=== PATIENT | female | born 1955 | race African-American/Black ===

== ENCOUNTER 2017-05-10 23:15 | Inpatient (IN) ==
[2017-05-11 00:44] LABS: Basophils # 0.1 10*3/uL (0.0-0.2); Basophils % 0.7 % (0.0-0.8); Eosinophils # 0.1 10*3/uL (0.0-0.87); Hemoglobin 11.8 GM/DL (12.0-16.0); Immature Granulocytes % 0.3 %; Immature Granulocytes Absolute 0.03 #; Lymphocytes # 2.6 10*3/uL (1.4-4.0); Lymphocytes % 28.9 % (21.3-54.2); Mean Corpuscular HGB Conc 31.9 GM/DL (32-36); Mean Corpuscular Hemoglobin 28 PG (27-34); Mean Corpuscular Volume 88.5 FL (87-102); Mean Platelet Volume 12.5 FL (9.6-12.0); Monocytes # 0.4 10*3/uL (0.11-0.8); Monocytes % 4.3 % (1.7-12.7); NRBC # 0.03 10*3/uL; Neutrophils # 5.8 10*3/uL (1.4-7.4); Neutrophils % 64.8 % (38.7-73.9); Platelet Count 225 T/CUMM (130-400); Red Blood Count 4.18 MC/CUMM (3.8-5.5); White Blood Count 8.9 T/CUMM (4-12)
[2017-05-11 01:10] LABS: Calcium 8.6 MG/DL (8.5-10.1); Osmolality,Calculated 276.8 MOS/KG (273-304); Troponin I Only 0.015 NG/ML (0.00-0.045)
[2017-05-11] MEDS ORDERED: FUROSEMIDE 40 MG/4 ML VIAL IV STA (02:32)
[2017-05-11] MEDS ORDERED: FUROSEMIDE 40 MG/4 ML VIAL ONE ×2 (03:27→15:40)
[2017-05-11] MEDS ORDERED: ONDANSETRON 4 MG/2 ML VIAL IV PRN (03:30)
[2017-05-11] MEDS ORDERED: ACETAMINOPHEN 325 MG TABLET PO PRN (03:30)
[2017-05-11] MEDS ORDERED: GLUCAGON 1 MG VIAL IM PRN ×2 (03:30→16:02)
[2017-05-11] MEDS ORDERED: DEXTROSE 50% 25 GM/50 ML VIAL IV PRN ×2 (03:30→16:02)
[2017-05-11] MEDS ORDERED: hydrALAZINE 20 MG/1 ML VIAL IV PRN (03:36)
[2017-05-11 03:57] LABS: Apearance,Urine Slightly Hazy (Clear); Bacteria,Urine Occasional /HPF (Few); Bilirubin,Urine Negative (Negative); Blood, Urine Small mg/dL (Negative); Glucose,Urine (UA) 50 mg/dL (Negative); Granular Casts,Urine 6 /LPF (0-1); Hyaline Casts,Urine 25 /LPF (0-3); Ketones,Urine Negative (Negative); Mucus,Urine Occasional /LPF (Occasional); Nitrite,Urine Negative (Negative); Protein,Urine >=500 MG/DL; RBC,Urine 3 /HPF (0-4); Squamous Epithelial Cell,Urine Occasional /HPF (0-10); Urine Color Amber (Yellow); Urine Specific Gravity 1.015 (1.001-1.035); WBC,Urine 12 /HPF (0-6)
[2017-05-11 06:42] LABS: Risk Ratio 6.55; Thyroid Stimulating Hormone 2.17 uIU/ml (0.358-3.74); VLDL CHOLESTEROL 16.6 MG/DL
[2017-05-11] MEDS: ALBUTEROL/IPRATROPIUM 3 ML NEB RESP TX SCH ×3 (07:37→19:15)
[2017-05-11] MEDS: ENOXAPARIN 40 MG/0.4 ML SYRINGE SUBCUT SCH (08:42)
[2017-05-11] MEDS: PANTOPRAZOLE 40 MG TABLET PO SCH (08:42)
[2017-05-11] MEDS: INSULIN REGULAR 100 UNIT/ML SUBCUT SCH ×4 (08:42→20:19)
[2017-05-11] MEDS: FUROSEMIDE 40 MG/4 ML VIAL IV SCH ×2 (08:42→17:26)
[2017-05-11] MEDS ORDERED: CEPHALEXIN 500 MG PO SCH (09:00)
[2017-05-11] MEDS ORDERED: ASPIRIN 325 MG TABLET PO ONE (11:25)
[2017-05-11] MEDS: CARVEDILOL 3.125 MG TABLET PO SCH ×2 (12:28→20:24)
[2017-05-11] MEDS: ATORVASTATIN 80 MG TABLET PO SCH (12:28)
[2017-05-11] MEDS ORDERED: DIAZEPAM 5 MG TABLET PO ONE (14:39)
[2017-05-11] MEDS ORDERED: diphenhydrAMINE CAP 25 MG CAPSULE PO ONE (14:39)
[2017-05-11] MEDS ORDERED: LIDOCAINE 1% 20 ML VIAL ONE (14:52)
[2017-05-11] MEDS ORDERED: HEPARIN/NACL 0.9% 2 UNITS/ML 2,000 ML IV ONE (14:52)
[2017-05-11] MEDS ORDERED: SODIUM CHLORIDE 0.9% 1,000 ML IV SCH (15:00)
[2017-05-11] MEDS ORDERED: MIDAZOLAM 2 MG/2 ML VIAL ONE (15:04)
[2017-05-11] MEDS ORDERED: HYDROmorphone 2 MG/1 ML VIAL ONE (15:04)
[2017-05-11] MEDS ORDERED: ZALEPLON 5 MG CAPSULE PO PRN (16:02)
[2017-05-11 17:21] LABS: Apearance,Urine Slightly Hazy (Clear); Bacteria,Urine Occasional /HPF (Few); Bilirubin,Urine Negative (Negative); Blood, Urine Small mg/dL (Negative); Glucose,Urine (UA) Negative (Negative); Ketones,Urine Negative (Negative); Mucus,Urine Occasional /LPF (Occasional); Nitrite,Urine Negative (Negative); Protein,Urine 100 MG/DL; RBC,Urine 3 /HPF (0-4); Squamous Epithelial Cell,Urine Occasional /HPF (0-10); Urine Color Yellow (Yellow); Urine Specific Gravity 1.019 (1.001-1.035); WBC,Urine 12 /HPF (0-6)
[2017-05-11 18:02] LABS: INR 1.5; PT Patient Result 15.8 SECS
[2017-05-12] MEDS: ALBUTEROL/IPRATROPIUM 3 ML NEB RESP TX SCH ×4 (00:15→19:33)
[2017-05-12 05:03] LABS: Basophils # 0.1 10*3/uL (0.0-0.2); Basophils % 0.6 % (0.0-0.8); Eosinophils # 0.2 10*3/uL (0.0-0.87); Eosinophils % 2.3 % (0.00-10.9); Hematocrit 36.2 VOL% (35.7-47.0); Hemoglobin 11.5 GM/DL (12.0-16.0); Immature Granulocytes % 0.3 %; Immature Granulocytes Absolute 0.03 #; Lymphocytes # 1.3 10*3/uL (1.4-4.0); Lymphocytes % 15.1 % (21.3-54.2); Mean Corpuscular HGB Conc 31.8 GM/DL (32-36); Mean Corpuscular Hemoglobin 28 PG (27-34); Mean Corpuscular Volume 87.4 FL (87-102); Mean Platelet Volume 12.6 FL (9.6-12.0); Monocytes # 0.4 10*3/uL (0.11-0.8); NRBC # 0.02 10*3/uL; Neutrophils # 6.8 10*3/uL (1.4-7.4); Neutrophils % 76.7 % (38.7-73.9); Platelet Count 196 T/CUMM (130-400); Red Blood Count 4.14 MC/CUMM (3.8-5.5); Red Cell Distribution Width 15.9 % (9.3-17.3); White Blood Count 8.8 T/CUMM (4-12)
[2017-05-12 06:27] LABS: Albumin 2.7 G/DL (3.4-5.0); Bilirubin,Total 2.2 MG/DL (0.2-1.0); Calcium 8.4 MG/DL (8.5-10.1); Osmolality,Calculated 278.5 MOS/KG (273-304); Potassium 3.2 MMOL/L (3.5-5.1); Total Protein 6.4 G/DL (6.4-8.3)
[2017-05-12] MEDS: MAGNESIUM SULF RIDER 2 GM in PREMIX 1 EACH IV PRN (06:36)
[2017-05-12] MEDS ORDERED: FUROSEMIDE 20 MG/2 ML VIAL ONE (08:24)
[2017-05-12] MEDS: INSULIN REGULAR 100 UNIT/ML SUBCUT SCH ×4 (08:50→20:32)
[2017-05-12] MEDS: ASPIRIN CHEW 81 MG TABLET PO SCH (08:51)
[2017-05-12] MEDS: ATORVASTATIN 80 MG TABLET PO SCH ×2 (08:51→20:20)
[2017-05-12] MEDS: PANTOPRAZOLE 40 MG TABLET PO SCH (08:51)
[2017-05-12] MEDS: CARVEDILOL 3.125 MG TABLET PO SCH ×2 (08:51→20:32)
[2017-05-12] MEDS: ENOXAPARIN 40 MG/0.4 ML SYRINGE SUBCUT SCH (08:52)
[2017-05-12] MEDS: FUROSEMIDE 40 MG/4 ML VIAL IV SCH (08:52)
[2017-05-12] MEDS ORDERED: POTASSIUM CHLORIDE 20 MEQ TABLET PO ONE (08:55)
[2017-05-12] MEDS: LOSARTAN 25 MG TABLET PO SCH (10:01)
[2017-05-12] MEDS: SPIRONOLACTONE 25 MG TABLET PO SCH (10:01)
[2017-05-12] MEDS ORDERED: CLOPIDOGREL 300 MG TABLET PO ONE (12:00)
[2017-05-12] MEDS: POTASSIUM CHLORIDE RIDER 10 MEQ in PREMIX 1 EACH IV PRN ×2 (12:56→14:57)
[2017-05-12] MEDS: FUROSEMIDE 40 MG TABLET PO SCH (15:44)
[2017-05-13] MEDS: ALBUTEROL/IPRATROPIUM 3 ML NEB RESP TX SCH ×4 (00:14→18:47)
[2017-05-13 05:16] LABS: Basophils # 0.1 10*3/uL (0.0-0.2); Basophils % 0.6 % (0.0-0.8); Eosinophils # 0.2 10*3/uL (0.0-0.87); Eosinophils % 2.8 % (0.00-10.9); Hematocrit 34.9 VOL% (35.7-47.0); Hemoglobin 11.4 GM/DL (12.0-16.0); Immature Granulocytes % 0.3 %; Immature Granulocytes Absolute 0.02 #; Lymphocytes # 2.1 10*3/uL (1.4-4.0); Lymphocytes % 26.4 % (21.3-54.2); Mean Corpuscular HGB Conc 32.7 GM/DL (32-36); Mean Corpuscular Hemoglobin 28 PG (27-34); Mean Platelet Volume 12.8 FL (9.6-12.0); Monocytes # 0.5 10*3/uL (0.11-0.8); Monocytes % 6.4 % (1.7-12.7); NRBC # 0.02 10*3/uL; Neutrophils % 63.5 % (38.7-73.9); Platelet Count 212 T/CUMM (130-400); Red Blood Count 4.06 MC/CUMM (3.8-5.5); Red Cell Distribution Width 16.2 % (9.3-17.3); White Blood Count 7.8 T/CUMM (4-12)
[2017-05-13 05:50] LABS: Calcium 8.4 MG/DL (8.5-10.1); Osmolality,Calculated 277.4 MOS/KG (273-304); Potassium 3.6 MMOL/L (3.5-5.1)
[2017-05-13] MEDS: MAGNESIUM SULF RIDER 2 GM in PREMIX 1 EACH IV PRN (06:34)
[2017-05-13] MEDS: INSULIN REGULAR 100 UNIT/ML SUBCUT SCH ×4 (09:11→20:40)
[2017-05-13] MEDS: LOSARTAN 25 MG TABLET PO SCH (09:12)
[2017-05-13] MEDS: CLOPIDOGREL 75 MG TABLET PO SCH (09:12)
[2017-05-13] MEDS: ENOXAPARIN 40 MG/0.4 ML SYRINGE SUBCUT SCH (09:12)
[2017-05-13] MEDS: CARVEDILOL 6.25 MG TABLET PO SCH ×2 (09:12→20:40)
[2017-05-13] MEDS: ASPIRIN CHEW 81 MG TABLET PO SCH (09:12)
[2017-05-13] MEDS: PANTOPRAZOLE 40 MG TABLET PO SCH (09:12)
[2017-05-13] MEDS: SPIRONOLACTONE 25 MG TABLET PO SCH (09:12)
[2017-05-13] MEDS: FUROSEMIDE 40 MG TABLET PO SCH ×2 (09:12→16:27)
[2017-05-13] MEDS: ATORVASTATIN 80 MG TABLET PO SCH (20:39)
[2017-05-14] MEDS: ALBUTEROL/IPRATROPIUM 3 ML NEB RESP TX SCH ×3 (00:06→13:48)
[2017-05-14 05:04] LABS: Basophils # 0.1 10*3/uL (0.0-0.2); Basophils % 0.7 % (0.0-0.8); Eosinophils # 0.2 10*3/uL (0.0-0.87); Hematocrit 34.8 VOL% (35.7-47.0); Hemoglobin 11.1 GM/DL (12.0-16.0); Immature Granulocytes % 0.1 %; Immature Granulocytes Absolute 0.01 #; Lymphocytes % 26.2 % (21.3-54.2); Mean Corpuscular HGB Conc 31.9 GM/DL (32-36); Mean Corpuscular Hemoglobin 28 PG (27-34); Mean Corpuscular Volume 87.7 FL (87-102); Mean Platelet Volume 11.8 FL (9.6-12.0); Monocytes # 0.6 10*3/uL (0.11-0.8); Monocytes % 7.2 % (1.7-12.7); Neutrophils # 4.8 10*3/uL (1.4-7.4); Neutrophils % 62.8 % (38.7-73.9); Platelet Count 205 T/CUMM (130-400); Red Blood Count 3.97 MC/CUMM (3.8-5.5); White Blood Count 7.6 T/CUMM (4-12)
[2017-05-14 05:41] LABS: Calcium 8.9 MG/DL (8.5-10.1); Osmolality,Calculated 276.7 MOS/KG (273-304); Potassium 3.2 MMOL/L (3.5-5.1)
[2017-05-14] MEDS ORDERED: MAGNESIUM SULF RIDER 4 GM in PREMIX 1 EACH IV PRN (09:16)
[2017-05-14] MEDS ORDERED: MAGNESIUM SULF RIDER 2 GM in PREMIX 1 EACH IV PRN (09:16)
[2017-05-14] MEDS: INSULIN REGULAR 100 UNIT/ML SUBCUT SCH ×3 (09:18→16:41)
[2017-05-14] MEDS: LOSARTAN 25 MG TABLET PO SCH (09:30)
[2017-05-14] MEDS: ENOXAPARIN 40 MG/0.4 ML SYRINGE SUBCUT SCH (09:30)
[2017-05-14] MEDS: CARVEDILOL 6.25 MG TABLET PO SCH (09:30)
[2017-05-14] MEDS: SPIRONOLACTONE 25 MG TABLET PO SCH (09:30)
[2017-05-14] MEDS: ASPIRIN CHEW 81 MG TABLET PO SCH (09:30)
[2017-05-14] MEDS: FUROSEMIDE 40 MG TABLET PO SCH ×2 (09:30→16:41)
[2017-05-14] MEDS: CLOPIDOGREL 75 MG TABLET PO SCH (09:30)
[2017-05-14] MEDS: PANTOPRAZOLE 40 MG TABLET PO SCH (09:30)
[2017-05-14] MEDS ORDERED: POTASSIUM CHLORIDE 20 MEQ TABLET PO ONE (10:00)
[2017-05-14 17:20] VITALS: BP 131/74
== END 2017-05-14 18:23 | disposition home or self-care (01) | DRG 286 ==
LOC: EDBD → N.ED 23:15 → SUATTDRO 05-11 03:28 → N.EDINP 05-11 03:28 → N.TELES 05-11 04:02 → N.ICU 05-11 17:02 → N.TELEN 05-12 16:16
PROVIDERS: ADMIT Internal Medicine Infectious Disease; ATTEND Hospitalist

== ENCOUNTER 2018-04-06 05:30 | Inpatient (IN) ==
[2018-04-05 10:29] LABS: Basophils # 0.1 10*3/uL (0.0-0.2); Basophils % 0.8 % (0.0-0.8); Eosinophils # 0.3 10*3/uL (0.0-0.87); Hematocrit 32.9 VOL% (35.7-47.0); Hemoglobin 10.5 GM/DL (12.0-16.0); Immature Granulocytes % 0.3 %; Immature Granulocytes Absolute 0.03 #; Lymphocytes # 2.4 10*3/uL (1.4-4.0); Lymphocytes % 25.2 % (21.3-54.2); Mean Corpuscular HGB Conc 31.9 GM/DL (32-36); Mean Corpuscular Hemoglobin 28 PG (27-34); Mean Corpuscular Volume 88.2 FL (87-102); Mean Platelet Volume 12.9 FL (9.6-12.0); Monocytes # 0.7 10*3/uL (0.11-0.8); Monocytes % 7.3 % (1.7-12.7); Neutrophils # 6.1 10*3/uL (1.4-7.4); Neutrophils % 63.4 % (38.7-73.9); Platelet Count 182 T/CUMM (130-400); Red Blood Count 3.73 MC/CUMM (3.8-5.5); Red Cell Distribution Width 12.9 % (9.3-17.3); White Blood Count 9.6 T/CUMM (4-12)
[2018-04-05 10:38] LABS: PT Patient Result 11.2 SECS; Partial Thromboplastin Time 23.8 SECS (0-40)
[2018-04-05 10:48] LABS: Calcium 9.2 MG/DL (8.5-10.1); Osmolality,Calculated 282.1 MOS/KG (273-304); Potassium 4.1 MMOL/L (3.5-5.1)
[2018-04-05 10:57] LABS: Apearance,Urine CLEAR (Clear); Bilirubin,Urine Negative (Negative); Blood, Urine Negative (Negative); Glucose,Urine (UA) >=500 mg/dL (Negative); Ketones,Urine Negative (Negative); Nitrite,Urine Negative (Negative); Protein,Urine Negative; Urine Color Yellow (Yellow); Urine Specific Gravity 1.012 (1.001-1.035)
[2018-04-05 11:11] LABS: Bacteria,Urine Few /HPF (Few)
[~2018-04-06 05:30] MED LIST: PAPAVERINE 60 MG/2 ML VIAL ONE; SODIUM CHLORIDE 0.9% 1,000 ML IV PRN; TISSUE ADHESIVE 1 EACH APPLICATOR TOP ONE; VANCOMYCIN 1,000 MG VIAL ONE
[2018-04-06] MEDS ORDERED: DIAZEPAM 5 MG TABLET PO ONE (06:00)
[2018-04-06] MEDS ORDERED: CEFUROXIME INJ 1,500 MG in SYRINGE 1 EACH IV ONE (06:00)
[2018-04-06] MEDS ORDERED: FAMOTIDINE 20 MG TABLET PO ONE (06:00)
[2018-04-06] MEDS ORDERED: FAMOTIDINE 20 MG TABLET ONE (06:01)
[2018-04-06] MEDS ORDERED: DIAZEPAM 5 MG TABLET ONE (06:01)
[2018-04-06] MEDS ORDERED: AMINOCAPROIC ACID 5,000 MG/20 ML VIAL ONE (06:12)
[2018-04-06] MEDS ORDERED: CEFUROXIME 1,500 MG VIAL ONE (06:17)
[2018-04-06] MEDS: LACTATED RINGERS 1,000 ML IV SCH (06:25)
[2018-04-06] MEDS ORDERED: ePHEDrine 50 MG/ML AMP ONE (06:45)
[2018-04-06 06:58] LABS: Apearance,Urine Clear (Clear); Bilirubin,Urine Negative (Negative); Blood, Urine Negative (Negative); Glucose,Urine (UA) >500 mg/dL (Negative); Ketones,Urine Negative (Negative); Nitrite,Urine Negative (Negative); Protein,Urine Negative; Urine Color Yellow (Yellow); Urine Specific Gravity 1.015 (1.001-1.035)
[2018-04-06 07:48] LABS: ABG Base Excess 2.5 MMOL/L (-2.5-2.5); ABG HCO3 26.7 MMOL/L (20-26); ABG PCO2 42.4 MM HG (35-48); ABG PH 7.417 (7.35-7.45); Glucose Heart Surgery 301 MG/DL (74-106); Hemoglobin Heart Surgery 9.4 G/DL (12.0-16.0); Ionized Calcium Arterial 1.18 MMOL/L (1.21-1.46); PCO2 Patient Temp Arterial 42.4 MMHG; PH Patient Temp Arterial 7.417; Patient Temperature 37 CELCIUS; Potassium Heart/CVR 3.7 MMOL/L (3.5-5.1); Sodium Heart/CVR 139 MMOL/L (135-145)
[2018-04-06] MEDS ORDERED: CALCIUM CHLORIDE 1,000 MG/10 ML VIAL IV ONE (09:06)
[2018-04-06] MEDS ORDERED: HEPARIN/NACL 0.9% 2 UNITS/ML 500 ML IV ONE (09:06)
[2018-04-06] MEDS ORDERED: VECURONIUM 10 MG VIAL IV ONE (09:06)
[2018-04-06] MEDS ORDERED: PHENYLEPHRINE DRIP 20 MG/250 ML PREMIX IV ONE (09:06)
[2018-04-06] MEDS ORDERED: ETOMIDATE 40 MG/20 ML VIAL IV ONE (09:06)
[2018-04-06] MEDS ORDERED: NITROGLYCERIN DRIP 50 MG/250 ML BOTTLE IV ONE (09:07)
[2018-04-06] MEDS ORDERED: PHENYLEPHRINE 1 MG/10 ML SYRINGE IV ONE (09:07)
[2018-04-06 09:16] LABS: Hemoglobin Heart Surgery 6.6 G/DL (12.0-16.0); PH Patient Temp Venous 7.636; Potassium Heart/CVR 3.8 MMOL/L (3.5-5.1); VBG Base Excess 3.7 MEQ/L (0-4); VBG HCO3 27.9 MEQ/L (24-28); VBG Oxygen Saturation 83.1 %; VBG PCO2 40.6 MMHG (41-51); VBG PH 7.455; VBG PO2 47.5 MMHG (17-40)
[2018-04-06 09:17] LABS: PO2 Patient Temp Venous 20.4 MM HG
[2018-04-06 09:45] LABS: Hematocrit Heart Surgery 22.2 PERCENT (37-47); Hemoglobin Heart Surgery 7.1 G/DL (12.0-16.0); PCO2 Patient Temp Venous 38.9 MM HG; PH Patient Temp Venous 7.457; PO2 Patient Temp Venous 39.5 MM HG; Potassium Heart/CVR 3.6 MMOL/L (3.5-5.1); VBG Base Excess 3.4 MEQ/L (0-4); VBG HCO3 27.2 MEQ/L (24-28); VBG Oxygen Saturation 76.6 %; VBG PCO2 38.9 MMHG (41-51); VBG PH 7.457; VBG PO2 39.5 MMHG (17-40)
[2018-04-06 10:13] LABS: ABG Base Excess 2.2 MMOL/L (-2.5-2.5); ABG HCO3 26.4 MMOL/L (20-26); ABG Oxygen Saturation 99.7 % (95-100); ABG PCO2 40.3 MM HG (35-48); ABG PH 7.428 (7.35-7.45); ABG TCO2 24.9 MMOL/L (23-27); Glucose Heart Surgery 286 MG/DL (74-106); Hematocrit Heart Surgery 24.1 PERCENT (37-47); Hemoglobin Heart Surgery 7.7 G/DL (12.0-16.0); Ionized Calcium Arterial 1.33 MMOL/L (1.21-1.46); PCO2 Patient Temp Arterial 40.3 MMHG; PH Patient Temp Arterial 7.428; Patient Temperature 37 CELCIUS; Potassium Heart/CVR 3.4 MMOL/L (3.5-5.1); Sodium Heart/CVR 135 MMOL/L (135-145)
[2018-04-06] MEDS ORDERED: MANNITOL 100 GM/500 ML BAG IV ONE (10:19)
[2018-04-06] MEDS ORDERED: HEPARIN 10,000 UNIT/10 ML VIAL ONE (10:19)
[2018-04-06] MEDS ORDERED: SODIUM BICARBONATE 50 MEQ/50 ML SYRINGE IV ONE (10:19)
[2018-04-06] MEDS ORDERED: MAGNESIUM SULFATE 10 GM/20 ML VIAL IV ONE (10:19)
[2018-04-06] MEDS ORDERED: PROTAMINE SULFATE 250 MG/25 ML VIAL IV ONE (10:19)
[2018-04-06] MEDS ORDERED: methylPREDNISolone SOD SUC 1,000 MG/8 ML VIAL ONE (10:19)
[2018-04-06] MEDS ORDERED: ALBUMIN 25% 25 GM/100 ML VIAL IV ONE (10:19)
[2018-04-06] MEDS ORDERED: DEXTROSE 5% KCL 20 MEQ 20 MEQ/1,000 ML BAG IV ONE (10:19)
[2018-04-06] MEDS ORDERED: PROTAMINE SULFATE 50 MG/5 ML VIAL IV ONE (10:20)
[2018-04-06] MEDS ORDERED: FUROSEMIDE 20 MG/2 ML VIAL ONE (10:20)
[2018-04-06] MEDS ORDERED: POTASSIUM CHLORIDE 20 MEQ/10 ML VIAL ONE (10:20)
[2018-04-06] MEDS ORDERED: THROMBIN TOPICAL (RECOMBINANT) 5,000 UNIT VIAL TOP ONE (10:33)
[2018-04-06] MEDS ORDERED: MAGNESIUM SULF RIDER 4 GM in PREMIX 1 EACH IV PRN (11:08)
[2018-04-06] MEDS ORDERED: POTASSIUM CHLORIDE RIDER 10 MEQ in PREMIX 1 EACH IV PRN (11:08)
[2018-04-06] MEDS ORDERED: CALCIUM CHLORIDE 1,000 MG/10 ML SYRINGE IV PRN (11:08)
[2018-04-06] MEDS ORDERED: CHLORHEXIDINE 4% SOLN 118 ML BOTTLE TOP PRN (11:08)
[2018-04-06] MEDS ORDERED: DEXTROSE 50% 25 GM/50 ML SYRINGE IV PRN (11:08)
[2018-04-06] MEDS ORDERED: ONDANSETRON 4 MG/2 ML VIAL IV PRN (11:08)
[2018-04-06] MEDS ORDERED: SODIUM CHLORIDE 0.9% 250 ML IV PRN (11:08)
[2018-04-06] MEDS ORDERED: MORPHINE 10 MG/1 ML VIAL IV PRN (11:08)
[2018-04-06] MEDS ORDERED: INSULIN REGULAR 100 UNIT/ML IV PRN (11:08)
[2018-04-06] MEDS ORDERED: MIDAZOLAM 2 MG/2 ML VIAL IV PRN (11:08)
[2018-04-06] MEDS ORDERED: ACETAMINOPHEN 650 MG SUPP RECTAL PRN (11:08)
[2018-04-06] MEDS ORDERED: PHENYLEPHRINE DRIP 40 MG/250 ML PREMIX IV ONE (11:11)
[2018-04-06] MEDS ORDERED: ALBUMIN 5% 12.5 GM/250 ML VIAL IV ONE (11:22)
[2018-04-06] MEDS: ALBUMIN 5% 12.5 GM in PREMIX 1 EACH IV PRN ×5 (11:25→20:44)
[2018-04-06] MEDS ORDERED: SEVOFLURANE 1 UNIT/15 MINUTE INH ONE (11:40)
[2018-04-06] MEDS ORDERED: SODIUM CHLORIDE 0.9% 1,000 ML IV ONE (11:41)
[2018-04-06] MEDS ORDERED: SODIUM CHLORIDE 0.9% 100 ML IV ONE (11:41)
[2018-04-06] MEDS ORDERED: LACTATED RINGERS 1,000 ML IV ONE (11:41)
[2018-04-06] MEDS ORDERED: SODIUM CHLORIDE 0.9% 250 ML IV ONE (11:41)
[2018-04-06] MEDS ORDERED: MIDAZOLAM 10 MG/2 ML VIAL ONE (11:42)
[2018-04-06 11:52] LABS: ABG Base Excess 1.7 MMOL/L (-2.5-2.5); ABG HCO3 26.5 MMOL/L (20-26); ABG Oxygen Saturation 97.9 % (95-100); ABG PCO2 42.7 MM HG (35-48); ABG PH 7.411 (7.35-7.45); ABG TCO2 27.8 MMOL/L (23-27); Glucose Heart Surgery 244 MG/DL (74-106); Hemoglobin Heart Surgery 8.8 G/DL (12.0-16.0); Potassium Heart/CVR 3.1 MMOL/L (3.5-5.1)
[2018-04-06 11:56] LABS: Basophils # 0.1 10*3/uL (0.0-0.2); Basophils % 0.3 % (0.0-0.8); Eosinophils # 0.2 10*3/uL (0.0-0.87); Hematocrit 23.9 VOL% (35.7-47.0); Immature Granulocytes % 0.6 %; Lymphocytes # 1.8 10*3/uL (1.4-4.0); Lymphocytes % 11.2 % (21.3-54.2); Mean Corpuscular HGB Conc 32.6 GM/DL (32-36); Mean Corpuscular Hemoglobin 29 PG (27-34); Mean Corpuscular Volume 87.5 FL (87-102); Mean Platelet Volume 13.1 FL (9.6-12.0); Monocytes # 0.6 10*3/uL (0.11-0.8); Monocytes % 3.9 % (1.7-12.7); Neutrophils # 13.3 10*3/uL (1.4-7.4); Red Cell Distribution Width 12.8 % (9.3-17.3)
[2018-04-06 11:57] LABS: Hemoglobin 7.8 GM/DL (12.0-16.0); Platelet Count 130 T/CUMM (130-400); Red Blood Count 2.73 MC/CUMM (3.8-5.5); White Blood Count 16.1 T/CUMM (4-12)
[2018-04-06 12:05] LABS: INR 1.2; PT Patient Result 12.7 SECS; Partial Thromboplastin Time 24.7 SECS (0-40)
[2018-04-06 12:10] LABS: Blood Urea Nitrogen 15 MG/DL (7-18); Calcium 8.7 MG/DL (8.5-10.1); Glucose 254 MG/DL (74-106); Osmolality,Calculated 282.8 MOS/KG (273-304); Potassium 3.3 MMOL/L (3.5-5.1); Sodium 137 MMOL/L (136-145)
[2018-04-06] MEDS: SODIUM CHLORIDE 0.45% 1,000 ML IV SCH ×3 (12:12→23:17)
[2018-04-06] MEDS: POTASSIUM CHLORIDE RIDER 20 MEQ in PREMIX 1 EACH IV PRN ×3 (12:13→17:49)
[2018-04-06 12:14] LABS: Band Neutrophils 1 % (0-10); Eosinophils 2 % (0-10); Hypochromasia 1+; Lymphocytes 8 % (20-55); Ovalocytes Slight; Segmented Neutrophils 87 % (50-85); Total Cells Counted 100
[2018-04-06 12:15] LABS: Microcytosis 1+; Platelet Estimate Adequate
[2018-04-06] MEDS: INSULIN REGULAR DRIP 100 ML IV SCH ×2 (12:19→21:17)
[2018-04-06 12:29] LABS: VBG Base Excess 0.9 MEQ/L (0-4); VBG HCO3 24.7 MEQ/L (24-28); VBG Oxygen Saturation 52.1 %; VBG PCO2 48.5 MMHG (41-51); VBG PH 7.351; VBG PO2 30.8 MMHG (17-40)
[2018-04-06] MEDS ORDERED: ASPIRIN 325 MG TABLET PER TUBE ONE (13:46)
[2018-04-06] MEDS ORDERED: PHENYLEPHRINE DRIP 40 MG/250 ML PREMIX IV PRN (15:39)
[2018-04-06 15:56] LABS: ABG Base Excess -1.1 MMOL/L (-2.5-2.5); ABG HCO3 23.5 MMOL/L (20-26); ABG PCO2 45.2 MM HG (35-48); ABG PH 7.344 (7.35-7.45); ABG TCO2 23.3 MMOL/L (23-27); Glucose Heart Surgery 247 MG/DL (74-106); Hematocrit Heart Surgery 22.4 PERCENT (37-47); Hemoglobin Heart Surgery 7.2 G/DL (12.0-16.0); Potassium Heart/CVR 3.5 MMOL/L (3.5-5.1)
[2018-04-06] MEDS: MORPHINE 4 MG/1 ML VIAL IV PRN ×2 (19:44→23:48)
[2018-04-06] MEDS: CEFUROXIME INJ 1,500 MG in SYRINGE 1 EACH IV SCH (19:44)
[2018-04-06] MEDS: CHLORHEXIDINE 0.12% ORAL RINSE 60 ML BOTTLE SWISH/SPIT SCH (20:40)
[2018-04-06] MEDS: DEXTROSE 50% 25 GM/50 ML SYRINGE IV PRN (22:55)
[2018-04-07] MEDS: DEXTROSE 50% 25 GM/50 ML SYRINGE IV PRN (00:59)
[2018-04-07] MEDS: SODIUM CHLORIDE 0.45% 1,000 ML IV SCH ×3 (01:00→14:42)
[2018-04-07] MEDS: MORPHINE 4 MG/1 ML VIAL IV PRN ×3 (03:14→15:05)
[2018-04-07 04:00] LABS: Basophils % 0.2 % (0.0-0.8); Hematocrit 23.2 VOL% (35.7-47.0); Hemoglobin 7.4 GM/DL (12.0-16.0); Immature Granulocytes % 0.7 %; Immature Granulocytes Absolute 0.13 #; Lymphocytes # 1.2 10*3/uL (1.4-4.0); Mean Corpuscular HGB Conc 31.9 GM/DL (32-36); Mean Corpuscular Hemoglobin 28 PG (27-34); Mean Corpuscular Volume 88.9 FL (87-102); Mean Platelet Volume 12.7 FL (9.6-12.0); Monocytes # 0.8 10*3/uL (0.11-0.8); Monocytes % 4.2 % (1.7-12.7); Neutrophils # 17.6 10*3/uL (1.4-7.4); Neutrophils % 88.9 % (38.7-73.9); Platelet Count 101 T/CUMM (130-400); Red Blood Count 2.61 MC/CUMM (3.8-5.5); Red Cell Distribution Width 13.4 % (9.3-17.3); White Blood Count 19.8 T/CUMM (4-12)
[2018-04-07 04:11] LABS: Calcium 7.8 MG/DL (8.5-10.1); Osmolality,Calculated 287.1 MOS/KG (273-304); Potassium 4.3 MMOL/L (3.5-5.1)
[2018-04-07] MEDS: MAGNESIUM SULF RIDER 2 GM in PREMIX 1 EACH IV PRN ×2 (04:23→06:24)
[2018-04-07 05:04] LABS: Hypochromasia 1+; Ovalocytes Slight; Platelet Estimate Decreased
[2018-04-07 05:05] LABS: Microcytosis 1+
[2018-04-07] MEDS: LACTATED RINGERS 1,000 ML IV SCH (10:00)
[2018-04-07] MEDS ORDERED: FUROSEMIDE 40 MG/4 ML VIAL IV ONE (10:06)
[2018-04-07] MEDS ORDERED: INSULIN NPH 100 UNIT/ML SUBCUT ONE (10:06)
[2018-04-07] MEDS: CEFUROXIME INJ 1,500 MG in SYRINGE 1 EACH IV SCH ×2 (10:07→19:35)
[2018-04-07] MEDS: CLOPIDOGREL 75 MG TABLET PO SCH (10:07)
[2018-04-07] MEDS: FUROSEMIDE 40 MG TABLET PO SCH (10:07)
[2018-04-07] MEDS: CHLORHEXIDINE 0.12% ORAL RINSE 60 ML BOTTLE SWISH/SPIT SCH ×2 (10:08→21:52)
[2018-04-07] MEDS: METOPROLOL TARTRATE 25 MG TABLET PO SCH ×2 (10:08→21:56)
[2018-04-07] MEDS: ASPIRIN EC 325 MG TABLET PO SCH (10:08)
[2018-04-07] MEDS ORDERED: GLUCAGON 1 MG VIAL IM PRN (10:08)
[2018-04-07] MEDS: PANTOPRAZOLE 40 MG VIAL IV SCH (10:08)
[2018-04-07] MEDS: INSULIN REGULAR DRIP 100 ML IV SCH (11:30)
[2018-04-07] MEDS ORDERED: INSULIN REGULAR 100 UNIT/ML SUBCUT SCH (14:00)
[2018-04-07] MEDS ORDERED: NON-FORMULARY MEDICATION (Albuterol Sulfate [Ventolin Hfa] 2 PUFF) INH PRN (14:32)
[2018-04-07] MEDS ORDERED: CLOPIDOGREL 75 MG TABLET PO SCH (14:32)
[2018-04-07] MEDS ORDERED: ALBUTEROL 2.5 MG/3 ML NEB RESP TX PRN (14:32)
[2018-04-07] MEDS: INSULIN REGULAR 100 UNIT/ML SUBCUT SCH ×2 (15:27→21:57)
[2018-04-07] MEDS: ATORVASTATIN 40 MG TABLET PO SCH (21:56)
[2018-04-08] MEDS: INSULIN REGULAR 100 UNIT/ML SUBCUT SCH ×6 (00:35→21:56)
[2018-04-08 05:39] LABS: Basophils % 0.1 % (0.0-0.8); Hematocrit 24.3 VOL% (35.7-47.0); Hemoglobin 7.6 GM/DL (12.0-16.0); Immature Granulocytes % 0.5 %; Lymphocytes # 1.6 10*3/uL (1.4-4.0); Lymphocytes % 8.6 % (21.3-54.2); Mean Corpuscular HGB Conc 31.3 GM/DL (32-36); Mean Corpuscular Hemoglobin 28 PG (27-34); Mean Platelet Volume 13.9 FL (9.6-12.0); Monocytes # 1.1 10*3/uL (0.11-0.8); Monocytes % 5.9 % (1.7-12.7); Neutrophils # 15.5 10*3/uL (1.4-7.4); Neutrophils % 84.9 % (38.7-73.9); Platelet Count 107 T/CUMM (130-400); Red Cell Distribution Width 13.7 % (9.3-17.3); White Blood Count 18.3 T/CUMM (4-12)
[2018-04-08 05:57] LABS: Calcium 8.5 MG/DL (8.5-10.1); Potassium 4.4 MMOL/L (3.5-5.1)
[2018-04-08 06:14] LABS: Lymphocytes 6 % (20-55); Platelet Estimate Decreased; Polychromasia Few; Segmented Neutrophils 92 % (50-85); Total Cells Counted 100
[2018-04-08] MEDS ORDERED: SODIUM CHLORIDE 0.9% 1,000 ML IV PRN (08:18)
[2018-04-08] MEDS: LACTATED RINGERS 1,000 ML IV SCH (09:05)
[2018-04-08] MEDS: CLOPIDOGREL 75 MG TABLET PO SCH (09:24)
[2018-04-08] MEDS: METOPROLOL TARTRATE 25 MG TABLET PO SCH ×2 (09:24→21:56)
[2018-04-08] MEDS: EZETIMIBE 10 MG TABLET PO SCH (09:25)
[2018-04-08] MEDS: POTASSIUM CHLORIDE 20 MEQ TABLET PO SCH (09:25)
[2018-04-08] MEDS: ASPIRIN EC 325 MG TABLET PO SCH (09:25)
[2018-04-08] MEDS: PANTOPRAZOLE 40 MG TABLET PO SCH (09:25)
[2018-04-08] MEDS: CHLORHEXIDINE 0.12% ORAL RINSE 60 ML BOTTLE SWISH/SPIT SCH ×2 (09:26→21:56)
[2018-04-08] MEDS: FUROSEMIDE 40 MG TABLET PO SCH (09:26)
[2018-04-08] MEDS: PANTOPRAZOLE 40 MG VIAL IV SCH (09:42)
[2018-04-08] MEDS: INSULIN GLARGINE 100 UNIT/ML SUBCUT SCH (11:40)
[2018-04-08] MEDS: INSULIN LISPRO 100 UNIT/ML SUBCUT SCH ×3 (11:40→21:55)
[2018-04-08] MEDS: ATORVASTATIN 40 MG TABLET PO SCH (21:56)
[2018-04-09 04:56] LABS: Basophils # 0.1 10*3/uL (0.0-0.2); Basophils % 0.3 % (0.0-0.8); Eosinophils % 0.2 % (0.00-10.9); Hematocrit 27.7 VOL% (35.7-47.0); Hemoglobin 8.9 GM/DL (12.0-16.0); Immature Granulocytes % 0.7 %; Immature Granulocytes Absolute 0.12 #; Lymphocytes % 17.2 % (21.3-54.2); Mean Corpuscular HGB Conc 32.1 GM/DL (32-36); Mean Corpuscular Hemoglobin 28 PG (27-34); Mean Corpuscular Volume 88.2 FL (87-102); Mean Platelet Volume 13.2 FL (9.6-12.0); Monocytes # 1.5 10*3/uL (0.11-0.8); Monocytes % 8.5 % (1.7-12.7); Neutrophils # 12.6 10*3/uL (1.4-7.4); Neutrophils % 73.1 % (38.7-73.9); Platelet Count 108 T/CUMM (130-400); Red Blood Count 3.14 MC/CUMM (3.8-5.5); Red Cell Distribution Width 13.8 % (9.3-17.3); White Blood Count 17.2 T/CUMM (4-12)
[2018-04-09 05:13] LABS: Calcium 8.6 MG/DL (8.5-10.1); Osmolality,Calculated 283.7 MOS/KG (273-304); Potassium 3.9 MMOL/L (3.5-5.1)
[2018-04-09] MEDS: LACTATED RINGERS 1,000 ML IV SCH (07:56)
[2018-04-09] MEDS: EZETIMIBE 10 MG TABLET PO SCH (08:35)
[2018-04-09] MEDS: INSULIN LISPRO 100 UNIT/ML SUBCUT SCH ×4 (08:35→20:54)
[2018-04-09] MEDS: INSULIN GLARGINE 100 UNIT/ML SUBCUT SCH (08:35)
[2018-04-09] MEDS: PANTOPRAZOLE 40 MG TABLET PO SCH (08:35)
[2018-04-09] MEDS: METOPROLOL TARTRATE 25 MG TABLET PO SCH ×2 (08:35→20:37)
[2018-04-09] MEDS: POTASSIUM CHLORIDE 20 MEQ TABLET PO SCH (08:35)
[2018-04-09] MEDS: PANTOPRAZOLE 40 MG VIAL IV SCH (08:36)
[2018-04-09] MEDS: CLOPIDOGREL 75 MG TABLET PO SCH (08:36)
[2018-04-09] MEDS: INSULIN REGULAR 100 UNIT/ML SUBCUT SCH ×4 (08:36→20:55)
[2018-04-09] MEDS: FUROSEMIDE 40 MG TABLET PO SCH (08:36)
[2018-04-09] MEDS: CHLORHEXIDINE 0.12% ORAL RINSE 60 ML BOTTLE SWISH/SPIT SCH ×2 (08:36→20:37)
[2018-04-09] MEDS: ASPIRIN EC 325 MG TABLET PO SCH (08:36)
[2018-04-09] MEDS ORDERED: INSULIN GLARGINE 100 UNIT/ML SUBCUT SCH (11:40)
[2018-04-09] MEDS: metFORMIN 500 MG TABLET PO SCH ×2 (12:00→16:55)
[2018-04-09] MEDS ORDERED: DOCUSATE SODIUM 100 MG CAPSULE PO PRN (12:52)
[2018-04-09] MEDS ORDERED: BISACODYL 5 MG TABLET PO PRN (12:53)
[2018-04-09] MEDS: ATORVASTATIN 40 MG TABLET PO SCH (20:37)
[2018-04-10 05:39] LABS: Basophils # 0.1 10*3/uL (0.0-0.2); Basophils % 0.3 % (0.0-0.8); Eosinophils # 0.2 10*3/uL (0.0-0.87); Eosinophils % 1.2 % (0.00-10.9); Hematocrit 27.2 VOL% (35.7-47.0); Hemoglobin 8.4 GM/DL (12.0-16.0); Immature Granulocytes Absolute 0.15 #; Lymphocytes # 3.5 10*3/uL (1.4-4.0); Lymphocytes % 22.7 % (21.3-54.2); Mean Corpuscular HGB Conc 30.9 GM/DL (32-36); Mean Corpuscular Hemoglobin 28 PG (27-34); Mean Corpuscular Volume 91.3 FL (87-102); Mean Platelet Volume 13.4 FL (9.6-12.0); Monocytes # 1.4 10*3/uL (0.11-0.8); Monocytes % 9.2 % (1.7-12.7); NRBC # 0.04 10*3/uL; Neutrophils % 65.6 % (38.7-73.9); Platelet Count 130 T/CUMM (130-400); Red Blood Count 2.98 MC/CUMM (3.8-5.5); Red Cell Distribution Width 13.8 % (9.3-17.3); White Blood Count 15.2 T/CUMM (4-12)
[2018-04-10 05:59] LABS: Calcium 8.5 MG/DL (8.5-10.1); Osmolality,Calculated 282.5 MOS/KG (273-304); Potassium 3.8 MMOL/L (3.5-5.1)
[2018-04-10] MEDS: INSULIN REGULAR 100 UNIT/ML SUBCUT SCH ×2 (08:37→12:50)
[2018-04-10] MEDS: PANTOPRAZOLE 40 MG TABLET PO SCH (08:37)
[2018-04-10] MEDS: INSULIN LISPRO 100 UNIT/ML SUBCUT SCH ×2 (08:37→12:50)
[2018-04-10] MEDS: metFORMIN 500 MG TABLET PO SCH (08:37)
[2018-04-10] MEDS: EZETIMIBE 10 MG TABLET PO SCH (08:37)
[2018-04-10] MEDS: POTASSIUM CHLORIDE 20 MEQ TABLET PO SCH (08:37)
[2018-04-10] MEDS: PANTOPRAZOLE 40 MG VIAL IV SCH (08:38)
[2018-04-10] MEDS: ASPIRIN EC 325 MG TABLET PO SCH (08:38)
[2018-04-10] MEDS: METOPROLOL TARTRATE 25 MG TABLET PO SCH (08:38)
[2018-04-10] MEDS: CLOPIDOGREL 75 MG TABLET PO SCH (08:38)
[2018-04-10] MEDS: CHLORHEXIDINE 0.12% ORAL RINSE 60 ML BOTTLE SWISH/SPIT SCH (08:38)
[2018-04-10] MEDS: FUROSEMIDE 40 MG TABLET PO SCH (08:38)
[2018-04-10 11:55] VITALS: BP 93/52
== END 2018-04-10 12:57 | disposition home health service (06) | DRG 166 ==
LOC: N.SDSINP 05:39 → N.CVR 10:54 → N.TELES 04-07 14:18
PROVIDERS: ADMIT Thoracic Surgery (Cardiothoracic Vascular Surgery); ATTEND Thoracic Surgery (Cardiothoracic Vascular Surgery)